=== PATIENT | male | born 1940 | race African-American/Black ===

== ENCOUNTER → 2017-01-21 | Outpatient (CLI) | payer MEDICARE ==
[~2017-01-21] VITALS: Ht 167.6 cm; Wt 80.0 kg
[~2017-01-21] MED LIST: FLUT16H NASAL; GABA-326 PO; METO50 PO; MIRAUD PO; MULT-1082 PO; OMEP20 PO; OXYB5XL PO; PREG75 PO; RA COL-RITE PO; SIMV-260 PO; TAMS0.4C32 PO; TRAZ-147 PO; XALA2.5OS OP
[2017-01-21 12:48] VITALS: BP 106/55
== END | disposition home or self-care (01) ==
LOC: SRCNTR 12:38
PROVIDERS: ATTEND Hospitalist
DX: I10 Essential (primary) hypertension (principal); M54.5 Low back pain; I49.9 Cardiac arrhythmia, unspecified; E78.5 Hyperlipidemia, unspecified; I63.9 Cerebral infarction, unspecified; N40.0 Benign prostatic hyperplasia without lower urinary tract symptoms; G62.9 Polyneuropathy, unspecified
CPT/HCPCS: 90471; 96372; G0463

== ENCOUNTER → 2017-02-19 | Outpatient (CLI) | payer MEDICARE ==
[~2017-02-19] VITALS: Ht 167.6 cm; Wt 82.5 kg
[2017-02-19 11:00] VITALS: BP 128/70
== END | disposition home or self-care (01) ==
LOC: SRCNTR 10:40
PROVIDERS: ATTEND Hospitalist
DX: I10 Essential (primary) hypertension (principal); N40.0 Benign prostatic hyperplasia without lower urinary tract symptoms; E78.5 Hyperlipidemia, unspecified; I49.9 Cardiac arrhythmia, unspecified
CPT/HCPCS: G0463

== ENCOUNTER → 2017-04-19 | Outpatient (CLI) | payer MEDICARE ==
[~2017-04-19] VITALS: Ht 170.2 cm; Wt 82.2 kg
[2017-04-19 10:09] VITALS: BP 97/79
== END | disposition home or self-care (01) ==
LOC: SRCNTR 10:04
PROVIDERS: ATTEND Hospitalist
DX: I10 Essential (primary) hypertension (principal); E78.5 Hyperlipidemia, unspecified; I49.9 Cardiac arrhythmia, unspecified; M54.5 Low back pain; N40.0 Benign prostatic hyperplasia without lower urinary tract symptoms; H40.9 Unspecified glaucoma; G62.9 Polyneuropathy, unspecified; Z86.73 Personal history of transient ischemic attack (TIA), and cerebral infarction without residual deficits; Z86.79 Personal history of other diseases of the circulatory system; Z86.718 Personal history of other venous thrombosis and embolism
CPT/HCPCS: G0463

== ENCOUNTER → 2017-06-11 | Outpatient (CLI) | payer MEDICARE ==
[~2017-06-11] VITALS: Ht 167.6 cm; Wt 80.0 kg
[2017-06-11 10:41] VITALS: BP 107/69
== END | disposition home or self-care (01) ==
LOC: SRCNTR 10:33
PROVIDERS: ATTEND Hospitalist
DX: I10 Essential (primary) hypertension (principal); I49.9 Cardiac arrhythmia, unspecified; E78.5 Hyperlipidemia, unspecified; N40.1 Benign prostatic hyperplasia with lower urinary tract symptoms; M54.5 Low back pain; G62.9 Polyneuropathy, unspecified
CPT/HCPCS: G0463

== ENCOUNTER 2017-10-07 10:26 | Inpatient (IN) | payer MEDICARE ==
[~2017-10-07] VITALS: Ht 170.2 cm; Wt 77.3 kg
[~2017-10-07 10:26] MED LIST changes: -RA COL-RITE PO
[2017-10-07] MEDS ORDERED: ACETAMINOPHEN 500 MG TABLET PO ONE (11:15)
[2017-10-07] MEDS ORDERED: ACETAMINOPHEN 325 MG TABLET PO ONE (11:15)
[2017-10-07 11:31] LABS: BASOPHILS # (AUTO) 0.01 K/uL (0.00-0.20); BASOPHILS % (AUTO) 0.1 % (0.0-2.0); EOSINOPHILS # (AUTO) 0.11 K/uL (0.00-0.70); EOSINOPHILS % (AUTO) 1.27 % (1.0-6.0); HEMATOCRIT 44.8 % (41-53); HEMOGLOBIN 15.1 g/dL (13.5-17.5); LYMPHOCYTES # (AUTO) 0.7 K/uL (1.0-4.8); LYMPHOCYTES % (AUTO) 8.1 % (22.0-44.0); MEAN CORPUSCULAR HEMOGLOBIN 33.5 pg (26.0-34.0); MEAN CORPUSCULAR HGB CONC 33.6 G/dL (31.0-37.0); MEAN CORPUSCULAR VOLUME 100 fL (80-100); MONOCYTES # (AUTO) 0.5 K/uL (0.1-1.0); MONOCYTES % (AUTO) 5.5 % (2.0-9.0); NEUTROPHILS # (AUTO) 7.5 K/uL (1.8-7.7); PLATELET COUNT (AUTO) 131 K/uL (150-450); RED CELL DISTRIBUTION WIDTH 12.1 % (11.5-14.5); WHITE BLOOD COUNT (AUTO) 8.8 K/uL (4.5-11.0)
[2017-10-07 11:40] LABS: CALCIUM, TOTAL 9.9 mg/dL (8.8-10.5); CREATININE 1.39 mg/dL (0.60-1.30); POTASSIUM 4.6 mmol/L (3.5-5.1)
[2017-10-07 11:46] LABS: ALBUMIN 4.2 g/dL (3.4-5.0); BILIRUBIN,TOTAL 1.3 mg/dL (0.1-1.0); TOTAL PROTEIN, SERUM 8.6 g/dL (6.4-8.2)
[2017-10-07] MEDS ORDERED: HEPARIN SODIUM 25000 UNITS/D5W 250 ML IV PRN (12:02)
[2017-10-07] MEDS ORDERED: HEPARIN SODIUM,PORCINE 5,000 UNITS/ML VIAL IVP PRN ×2 (12:15)
[2017-10-07] MEDS ORDERED: HEPARIN SODIUM,PORCINE 5,000 UNITS/ML VIAL IVP ONE (12:15)
[2017-10-07 12:31] LABS: INR 1.1 (0.9-1.1); PROTHROMBIN TIME 11.4 SEC (9.4-11.6)
[2017-10-07] MEDS ORDERED: ACETAMINOPHEN 325 MG TABLET PO PRN (13:15)
[2017-10-07] MEDS ORDERED: ONDANSETRON HCL 4 MG/2 ML VIAL IVP PRN (13:15)
[2017-10-07 15:23] VITALS: BP 111/73
[2017-10-07 19:52] VITALS: BP 103/74
[2017-10-07] MEDS: APIXABAN 5 MG TABLET PO SCH (20:14)
[2017-10-07] MEDS ORDERED: MAGNESIUM HYDROXIDE SUSPENSION 30 ML UDCUP PO PRN (21:30)
[2017-10-07 22:01] LABS: PROTHROMBIN TIME 12.4 SEC (9.4-11.6)
[2017-10-07 22:02] LABS: INR 1.2 (0.9-1.1)
[2017-10-07] MEDS: TAMSULOSIN HCL 0.4 MG CAPSULE PO SCH (22:11)
[2017-10-07] MEDS: PREGABALIN 75 MG CAPSULE PO SCH (22:11)
[2017-10-07 23:07] VITALS: BP 116/57
[2017-10-08 04:43] VITALS: BP 105/67
[2017-10-08 06:34] LABS: BASOPHILS % (AUTO) 0.1 % (0.0-2.0); EOSINOPHILS % (AUTO) 1.6 % (1.0-6.0); HEMATOCRIT 42.3 % (41-53); HEMOGLOBIN 14.2 g/dL (13.5-17.5); LYMPHOCYTES # (AUTO) 1.2 K/uL (1.0-4.8); LYMPHOCYTES % (AUTO) 15.6 % (22.0-44.0); MEAN CORPUSCULAR HEMOGLOBIN 34.2 pg (26.0-34.0); MEAN CORPUSCULAR HGB CONC 33.7 G/dL (31.0-37.0); MEAN CORPUSCULAR VOLUME 102 fL (80-100); MONOCYTES # (AUTO) 0.6 K/uL (0.1-1.0); MONOCYTES % (AUTO) 8.2 % (2.0-9.0); NEUTROPHILS # (AUTO) 5.7 K/uL (1.8-7.7); NEUTROPHILS % (AUTO) 74.5 % (40.0-70.0); PLATELET COUNT (AUTO) 147 K/uL (150-450); RED BLOOD CELL COUNT(AUTO) 4.17 MIL/uL (4.50-5.90); RED CELL DISTRIBUTION WIDTH 11.9 % (11.5-14.5); WHITE BLOOD COUNT (AUTO) 7.7 K/uL (4.5-11.0)
[2017-10-08 07:39] VITALS: BP 98/69
[2017-10-08] MEDS: DOCUSATE SODIUM 100 MG CAPSULE PO SCH ×2 (07:54→20:16)
[2017-10-08] MEDS: APIXABAN 5 MG TABLET PO SCH ×2 (07:54→20:16)
[2017-10-08] MEDS: ASPIRIN 81 MG CHEWABLE TABLET PO SCH (07:54)
[2017-10-08] MEDS: GABAPENTIN 300 MG CAPSULE PO SCH ×3 (07:54→20:17)
[2017-10-08 09:37] LABS: RBC MORPHOLOGY COMMENT ABNORMAL RBC MORPH
[2017-10-08 11:49] VITALS: BP_SYST 104; BP_SYST 14; BP_DIAS 58
[2017-10-08 15:29] VITALS: BP 101/56
[2017-10-08 19:51] VITALS: BP 104/68
[2017-10-08] MEDS: TAMSULOSIN HCL 0.4 MG CAPSULE PO SCH (20:16)
[2017-10-08] MEDS: PREGABALIN 75 MG CAPSULE PO SCH (20:17)
[2017-10-08] MEDS: ACETAMINOPHEN 325 MG TABLET PO PRN (20:17)
[2017-10-08 23:35] VITALS: BP 106/69
[2017-10-09 04:28] VITALS: BP 103/65
[2017-10-09] MEDS: ASPIRIN 81 MG CHEWABLE TABLET PO SCH (07:44)
[2017-10-09] MEDS: GABAPENTIN 300 MG CAPSULE PO SCH ×3 (07:45→20:28)
[2017-10-09] MEDS: DOCUSATE SODIUM 100 MG CAPSULE PO SCH ×2 (07:45→20:27)
[2017-10-09] MEDS: APIXABAN 5 MG TABLET PO SCH ×2 (07:45→20:28)
[2017-10-09 08:00] VITALS: BP 113/63
[2017-10-09 11:07] VITALS: BP 103/62
[2017-10-09] MEDS: ACETAMINOPHEN 325 MG TABLET PO PRN (15:18)
[2017-10-09 15:24] VITALS: BP 103/72
[2017-10-09 19:49] VITALS: BP 105/69
[2017-10-09] MEDS: TAMSULOSIN HCL 0.4 MG CAPSULE PO SCH (20:28)
[2017-10-09] MEDS: PREGABALIN 75 MG CAPSULE PO SCH (20:28)
[2017-10-09 23:33] VITALS: BP 106/57
[2017-10-10 04:32] VITALS: BP 101/60
[2017-10-10 07:25] VITALS: BP 121/91
[2017-10-10] MEDS: DOCUSATE SODIUM 100 MG CAPSULE PO SCH (08:25)
[2017-10-10] MEDS: APIXABAN 5 MG TABLET PO SCH (08:25)
[2017-10-10] MEDS: GABAPENTIN 300 MG CAPSULE PO SCH ×2 (08:25→15:43)
[2017-10-10] MEDS: ASPIRIN 81 MG CHEWABLE TABLET PO SCH (08:25)
[2017-10-10 11:32] VITALS: BP 107/72
[2017-10-10] MEDS ORDERED: APIX5TAB PO ×2 (12:15)
[2017-10-10 16:07] VITALS: BP 103/62
== END 2017-10-10 16:00 | disposition home or self-care (01) | DRG 301 ==
LOC: EMS 10:29 → 6N 13:57
PROVIDERS: ADMIT Internal Medicine; ATTEND Internal Medicine
DX: I82.402 Acute embolism and thrombosis of unspecified deep veins of left lower extremity (principal); G62.9 Polyneuropathy, unspecified; I12.9 Hypertensive chronic kidney disease with stage 1 through stage 4 chronic kidney disease, or unspecified chronic kidney disease; N40.0 Benign prostatic hyperplasia without lower urinary tract symptoms; F32.9 Major depressive disorder, single episode, unspecified; G89.29 Other chronic pain; R26.2 Difficulty in walking, not elsewhere classified; Z87.891 Personal history of nicotine dependence; Z88.8 Allergy status to other drugs, medicaments and biological substances; Z79.899 Other long term (current) drug therapy; N18.2 Chronic kidney disease, stage 2 (mild)
CPT/HCPCS: 85379; 93971; 96365; 97110; 97161; 99285; J1644

== ENCOUNTER → 2018-04-28 | Outpatient (CLI) | payer MEDICARE ==
[~2018-04-28] VITALS: Ht 167.6 cm; Wt 80.5 kg
[~2018-04-28] MED LIST changes: -PREG75 PO; +WARF2 PO
[2018-04-28 10:05] VITALS: BP 102/62
== END | disposition home or self-care (01) ==
LOC: SRCNTR 09:52
PROVIDERS: ATTEND Hospitalist
DX: I10 Essential (primary) hypertension (principal); E78.5 Hyperlipidemia, unspecified; I49.9 Cardiac arrhythmia, unspecified; M54.5 Low back pain; N40.0 Benign prostatic hyperplasia without lower urinary tract symptoms; I82.409 Acute embolism and thrombosis of unspecified deep veins of unspecified lower extremity; Z86.73 Personal history of transient ischemic attack (TIA), and cerebral infarction without residual deficits
CPT/HCPCS: G0463

== ENCOUNTER → 2018-07-07 | Outpatient (CLI) | payer MEDICARE ==
[~2018-07-07] MED LIST changes: -MIRAUD PO; -TRAZ-147 PO; +TRAZ-220 PO
== END | disposition home or self-care (01) ==
LOC: RADMN 12:38
PROVIDERS: ATTEND Specialist
DX: M41.86 Other forms of scoliosis, lumbar region (principal); M48.07 Spinal stenosis, lumbosacral region; M43.16 Spondylolisthesis, lumbar region; M47.896 Other spondylosis, lumbar region; M25.78 Osteophyte, vertebrae; N40.0 Benign prostatic hyperplasia without lower urinary tract symptoms; I12.9 Hypertensive chronic kidney disease with stage 1 through stage 4 chronic kidney disease, or unspecified chronic kidney disease; N18.2 Chronic kidney disease, stage 2 (mild); E78.5 Hyperlipidemia, unspecified; F32.9 Major depressive disorder, single episode, unspecified; E03.9 Hypothyroidism, unspecified; K21.9 Gastro-esophageal reflux disease without esophagitis; Z87.891 Personal history of nicotine dependence; Z88.2 Allergy status to sulfonamides; Z79.899 Other long term (current) drug therapy
CPT/HCPCS: 72148

== ENCOUNTER → 2018-08-18 | Outpatient (CLI) | payer MEDICARE ==
[~2018-08-18] MED LIST changes: +NAPR-923 PO; +PREG75 PO
[2018-08-18 16:32] LABS: ANION GAP 2 mmol/L (8-16); CALCIUM, TOTAL 8.6 mg/dL (8.8-10.5); CARBON DIOXIDE 31 mmol/L (22-29); CHLORIDE 108 mmol/L (98-107); GLUCOSE,RANDOM 82 mg/dL (70-110); POTASSIUM 4.6 mmol/L (3.5-5.1); SODIUM SERUM 141 mmol/L (136-145); UREA NITROGEN, BLOOD 11 mg/dL (7-18)
[2018-08-18 16:33] LABS: GLOMERULAR FILTR. RATE CALC > 60 mL/min (>60)
== END | disposition home or self-care (01) ==
LOC: LABPV 13:53
PROVIDERS: ATTEND Hospitalist
DX: I10 Essential (primary) hypertension (principal); H40.9 Unspecified glaucoma; I12.9 Hypertensive chronic kidney disease with stage 1 through stage 4 chronic kidney disease, or unspecified chronic kidney disease; E78.5 Hyperlipidemia, unspecified; E03.9 Hypothyroidism, unspecified; N18.2 Chronic kidney disease, stage 2 (mild); K21.9 Gastro-esophageal reflux disease without esophagitis; Z79.899 Other long term (current) drug therapy; Z88.8 Allergy status to other drugs, medicaments and biological substances

== ENCOUNTER → 2018-08-18 | Outpatient (CLI) | payer MEDICARE ==
[~2018-08-18] VITALS: Ht 167.6 cm; Wt 80.5 kg
[2018-08-18 10:38] VITALS: BP 85/69
== END | disposition home or self-care (01) ==
LOC: SRCNTR 10:25
PROVIDERS: ATTEND Hospitalist
DX: I10 Essential (primary) hypertension (principal); E78.5 Hyperlipidemia, unspecified; I49.9 Cardiac arrhythmia, unspecified; M54.5 Low back pain; G62.9 Polyneuropathy, unspecified; N40.0 Benign prostatic hyperplasia without lower urinary tract symptoms; Z86.718 Personal history of other venous thrombosis and embolism; Z79.01 Long term (current) use of anticoagulants
CPT/HCPCS: G0463

== ENCOUNTER → 2018-09-22 | Outpatient (CLI) | payer MEDICARE ==
[~2018-09-22] MED LIST changes: +BRIM15DR8 OU; -WARF2 PO
[2018-09-22 11:24] LABS: BASOPHILS % (AUTO) 0.2 % (0.0-2.0); EOSINOPHILS % (AUTO) 1.9 % (1.0-6.0); HEMATOCRIT 41.2 % (41-53); HEMOGLOBIN 13.7 g/dL (13.5-17.5); LYMPHOCYTES # (AUTO) 1.2 K/uL (1.0-4.8); LYMPHOCYTES % (AUTO) 17.3 % (22.0-44.0); MEAN CORPUSCULAR HEMOGLOBIN 33.4 pg (26.0-34.0); MEAN CORPUSCULAR HGB CONC 33.2 G/dL (31.0-37.0); MEAN CORPUSCULAR VOLUME 101 fL (80-100); MONOCYTES # (AUTO) 0.7 K/uL (0.1-1.0); MONOCYTES % (AUTO) 9.6 % (2.0-9.0); PLATELET COUNT (AUTO) 192 K/uL (150-450); RED BLOOD CELL COUNT(AUTO) 4.09 MIL/uL (4.50-5.90)
[2018-09-22 11:54] LABS: PROSTATE SPECIFIC ANTIGEN 0.98 ng/mL (0.00-4.00)
[2018-09-22 12:17] LABS: ALANINE AMINOTRANSFERASE 21 U/L (12-78); ALKALINE PHOSPHATASE 90 U/L (46-116); ANION GAP 3 mmol/L (8-16); ASPARTATE AMINOTRANSFERASE 34 U/L (15-37); BILIRUBIN,TOTAL 0.7 mg/dL (0.1-1.0); CALCIUM, TOTAL 8.5 mg/dL (8.8-10.5); CARBON DIOXIDE 32 mmol/L (22-29); CHLORIDE 106 mmol/L (98-107); CHOL/HDL RATIO 1.8 (4.2-7.3); CHOLESTEROL 99 mg/dL (131-200); CREATININE 1.15 mg/dL (0.60-1.30); GLUCOSE,RANDOM 98 mg/dL (70-110); HDL CHOLESTEROL 55 mg/dL (40-60); LDL CHOL (CALC.) 38 mg/dL (0-130); POTASSIUM 4.7 mmol/L (3.5-5.1); SODIUM SERUM 141 mmol/L (136-145); TOTAL PROTEIN, SERUM 6.7 g/dL (6.4-8.2); TRIGLYCERIDES 31 mg/dL (15-150); UREA NITROGEN, BLOOD 9 mg/dL (7-18)
[2018-09-22 12:21] LABS: GLOMERULAR FILTR. RATE CALC > 60 mL/min (>60)
[2018-09-22 15:01] LABS: HEMOGLOBIN A1C 4.6 % (4.5-6.2)
== END | disposition home or self-care (01) ==
LOC: LABPV 09:51
PROVIDERS: ATTEND Hospitalist
DX: I10 Essential (primary) hypertension (principal); E78.5 Hyperlipidemia, unspecified; G62.9 Polyneuropathy, unspecified; N40.0 Benign prostatic hyperplasia without lower urinary tract symptoms; Z79.899 Other long term (current) drug therapy
CPT/HCPCS: 83036; 84153; 84443

== ENCOUNTER → 2018-09-22 | Outpatient (CLI) | payer MEDICARE ==
[~2018-09-22] MED LIST changes: -GABA-326 PO; +[UNRECOGNIZED DRUG - CODE] PO
[2018-09-22 08:55] VITALS: BP 93/55
== END | disposition home or self-care (01) ==
LOC: SRCNTR 08:43
PROVIDERS: ATTEND Hospitalist
DX: R42 Dizziness and giddiness (principal); R60.1 Generalized edema; E78.5 Hyperlipidemia, unspecified; I10 Essential (primary) hypertension; M54.5 Low back pain; N40.0 Benign prostatic hyperplasia without lower urinary tract symptoms; K21.9 Gastro-esophageal reflux disease without esophagitis; M25.569 Pain in unspecified knee; G62.9 Polyneuropathy, unspecified
CPT/HCPCS: G0463

== ENCOUNTER → 2018-11-03 | Outpatient (CLI) | payer MEDICARE ==
[~2018-11-03] VITALS: Ht 167.6 cm; Wt 80.0 kg
[2018-11-03 11:35] VITALS: BP 108/71
== END | disposition home or self-care (01) ==
LOC: SRCNTR 11:28
PROVIDERS: ATTEND Hospitalist
DX: M16.11 Unilateral primary osteoarthritis, right hip (principal); I10 Essential (primary) hypertension; E78.5 Hyperlipidemia, unspecified; N40.1 Benign prostatic hyperplasia with lower urinary tract symptoms; Z88.8 Allergy status to other drugs, medicaments and biological substances
CPT/HCPCS: G0463

== ENCOUNTER → 2019-01-05 | Outpatient (CLI) | payer MEDICARE ==
[~2019-01-05] VITALS: Ht 167.6 cm; Wt 83.2 kg
[~2019-01-05] MED LIST changes: +GABA800T9 PO; -[UNRECOGNIZED DRUG - CODE] PO
[2019-01-05 10:23] VITALS: BP 96/58
== END | disposition home or self-care (01) ==
LOC: SRCNTR 10:14
PROVIDERS: ATTEND Hospitalist
DX: E78.5 Hyperlipidemia, unspecified (principal); I10 Essential (primary) hypertension; N40.1 Benign prostatic hyperplasia with lower urinary tract symptoms
CPT/HCPCS: G0463

== ENCOUNTER → 2019-03-02 | Outpatient (CLI) | payer MEDICARE ==
[~2019-03-02] VITALS: Ht 167.6 cm; Wt 83.0 kg
[~2019-03-02] MED LIST changes: +METO25 PO; +NAPR-58 PO; +TRAZ-252 PO; -XALA2.5OS OP; +XALA2.5OS OU
[2019-03-02 14:07] VITALS: BP 103/65
== END | disposition home or self-care (01) ==
LOC: SRCNTR 09:27
PROVIDERS: ATTEND Hospitalist
DX: E78.5 Hyperlipidemia, unspecified (principal); I10 Essential (primary) hypertension; M54.5 Low back pain
CPT/HCPCS: G0463